=== PATIENT | male | born 1985 | race Caucasian/White ===

== ENCOUNTER 2016-07-03 16:45 | Emergency (ER) | payer OTHER ==
[2016-07-03] MEDS ORDERED: NALOXONE HCL 0.4 MG/ML VIAL ONE (16:58)
[2016-07-03 17:12] VITALS: TEMP 98; BMI 28.7
--- NOTE | 2016-07-03 17:20 | PDOC ---
History of Present Illness - History of Present Illness Initial Comments: 07/03/16 17:20 Patient is a 30 year old male with a PMHx of polysubstance abuse with multiple ED visits for Heroin overdose who was brought by EMS for heroin overdose. As per EMS, patients girlfriend was in the shower and when she came out she found him unresponsive in bed. She called EMS and started doing CPR. When paramedics arrived they gave 2mg of Narcan nasally, started a line and gave another 2mg IV. En route to the ED patient was given another 2mg IV with a total of 6mg of Narcan to get patient to an arousable state. Patient was lethargic when trying to question him and then 10 minutes later patient was awake and responsive. Patient stated he took two bags of heroin today, cocaine yesterday, and PCP last week. Patient states he felt his girlfriend doing complressions on his chest but he was unable to respond or breathe properly. He denies chest pain, palpitations, fever, chills He denies nausea, vomiting, diarrhea, abdominal pain He denies dysuria, hematuria, frequency PMHx: Polysubstance abuse PSHx: None MEDS: None Allergies: Penicillins, aripiprazole Social: Denies alcohol. (+) drug use of heroin, PCP, cocaine. (+) 12 cigarettes a day <Iris Castañeda - Last Filed: 07/03/16 19:38> <Giovanni Jones - Last Filed: 07/03/16 23:55> - General Chief Complaint: Overdose Stated Complaint: UNRESPONSIVE Time Seen by Provider: 07/03/16 17:05 Past History - Past Medical History Anemia: No Asthma: Yes Cancer: No Cardiac Disorders: No CVA: No COPD: No CHF: No DVT: No Dementia: No Diabetes: No Dialysis: No GI Disorders: No Disorders: No HTN: No Hypercholesterolemia: No HIV: No Kidney Stones: No Liver Disease: No Psychiatric Problems: Yes (feeling somewhat depressed, but not suicidal) Suicide Attempt (Hx): No Seizures: No Thyroid Disease: No Lung CA: No - Surgical History Abdominal Surgery: No Appendectomy: No Cardiac Surgery: No Cholecystectomy: No Gastric Stapling: No GI Surgery: No Lung Surgery: No Neurologic Surgery: No Orthopedic Surgery: No - Reproductive History Testicular Surgery: No - Immunization History Td Vaccination: Yes Immunization Up to Date: No - Psycho/Social/Smoking Cessation Hx Anxiety: No Suicidal Ideation: No Smoking Status: Yes Smoking History: Current every day smoker Have you smoked in the past 12 months: Yes Number of Cigarettes Smoked Daily: 20 Information on smoking cessation initiated: No 'Breaking Loose' booklet given: 06/12/16 Hx Alcohol Use: No Drug/Substance Use Hx: No Substance Use Type: Alcohol, Cocaine, Heroin Hx Substance Use Treatment: No <Iris Castañeda - Last Filed: 07/03/16 19:38> <Giovanni Jones - Last Filed: 07/03/16 23:55> - Past Medical History Allergies/Adverse Reactions: Allergies Allergy/AdvReac Type Severity Reaction Status Date / Time aripiprazole [From Abilify] Allergy Severe throat Verified 06/12/16 02:51 swelling amoxicillin trihydrate Allergy Verified 06/12/16 02:51 [From Augmentin] Penicillins Allergy Verified 06/12/16 02:51 potassium clavulanate Allergy Verified 06/12/16 02:51 [From Augmentin] quetiapine fumarate Allergy Verified 06/12/16 02:51 [From Seroquel] ziprasidone HCl [From Geodon] Allergy Verified 06/12/16 02:51 ziprasidone mesylate Allergy Verified 06/12/16 02:51 [From Geodon] Home Medications: Ambulatory Orders Naloxone HCl [Narcan -] 0.4 mg IJ ONCE #1 vial 07/03/16 Review of Systems - Review of Systems Constitutional: No: Chills, Diaphoresis, Fever HEENTM: No: Blurred Vision, Double Vision Respiratory: No: Cough, Shortness of Breath Cardiac (ROS): No: Chest Pain, Lightheadedness, Syncope ABD/GI: No: Nausea, Vomiting : No: Dysuria, Discharge, Frequency, Flank Pain Musculoskeletal: No: Back Pain, Joint Pain Integumentary: No: Bruising, Erythema Neurological: No: Headache, Numbness, Paresthesia, Seizure, Tingling, Tremors, Weakness, Unsteady Gait, Ataxia, Dizziness Endocrine: No: Intolerance to Cold, Intolerance to Heat Hematologic/Lymphatic: No: Anemia, Blood Clots <Iris Castañeda - Last Filed: 07/03/16 19:38> *Physical Exam - Vital Signs Last Vital Signs Temp Pulse Resp BP Pulse Ox 98.0 F 110 H 14 136/85 98 07/03/16 17:09 07/03/16 17:04 07/03/16 17:04 07/03/16 17:04 07/03/16 17:11 - Physical Exam General Appearance: Yes: Other (awake, alert, and in no respiratory distress ) HEENT: positive: EOMI, ALISON, Normal ENT Inspection, TMs Normal, Pharynx Normal, Other (constricted pupils ) Neck: positive: Trachea midline Respiratory/Chest: positive: Lungs Clear, Normal Breath Sounds Cardiovascular: positive: Regular Rhythm, S1, S2, Tachycardia. negative: Edema , JVD Gastrointestinal/Abdominal: positive: Normal Bowel Sounds, Soft. negative: Distended, Guarding, Rebound, Tenderness Musculoskeletal: positive: Normal Inspection Extremity: positive: Normal Inspection Integumentary: positive: Normal Color, Dry, Warm Neurologic: positive: senior quality assurance analyst II-XII NML intact, Fully Oriented, Alert, Normal Response, Motor Strength 5/5 <Iris Castañeda - Last Filed: 07/03/16 19:38> - Vital Signs Last Vital Signs Temp Pulse Resp BP Pulse Ox 98.0 F 120 H 18 121/76 98 07/03/16 17:09 07/03/16 17:58 07/03/16 17:58 07/03/16 17:58 07/03/16 17:58 <Giovanni Jones - Last Filed: 07/03/16 23:55> Heart Score/ECG Review - ECG Impressions Non-specific ST Elevation: No Ischemic Changes: No Tachycardia: Sinus (@113 BPM) <Iris Castañeda - Last Filed: 07/03/16 19:38> ED Treatment Course - LABORATORY CBC & Chemistry Diagram: 07/03/16 17:20 07/03/16 17:20 <Iris Castañeda - Last Filed: 07/03/16 19:38> - LABORATORY CBC & Chemistry Diagram: 07/03/16 17:20 07/03/16 17:20 - ADDITIONAL ORDERS Additional order review: Laboratory Results 07/03/16 07/03/16 22:31 17:20 Sodium 138 Potassium 4.3 Chloride 101 Carbon Dioxide 24 Anion Gap 13 BUN 15 D Creatinine 1.8 H D Creat Clearance w eGFR 44.83 Random Glucose 266 H D Calcium 8.7 Total Bilirubin 0.3 D AST 42 H D ALT 38 D Alkaline Phosphatase 102 D Total Protein 7.7 D Albumin 4.2 D Urine Color Yellow Urine Appearance Clear Urine pH 5.0 Ur Specific [place] 1.024 Urine Protein 1+ H Urine Glucose (UA) 3+ H Urine Ketones Negative Urine Blood Negative Urine Nitrite Negative Urine Bilirubin Negative Urine Urobilinogen Negative Ur Leukocyte Esterase Negative 07/03/16 17:20 RBC 5.32 MCV 87.7 MCHC 31.8 L RDW 13.8 MPV 9.4 Neutrophils % 57.8 Lymphocytes % 29.9 D Monocytes % 10.8 H Eosinophils % 1.1 Basophils % 0.4 - Medications Given in the ED: ED Medications Discontinued Medications Generic Name Dose Route Start Last Admin Trade Name Freq PRN Reason Stop Dose Admin Sodium Chloride 500 mls @ 500 mls/hr 07/03/16 18:44 07/03/16 18:50 Normal Saline - IV 07/03/16 19:43 500 mls/hr ASDIR STA Administration Sodium Chloride 500 mls @ 500 mls/hr 07/03/16 21:44 07/03/16 22:58 Normal Saline - IV 07/03/16 22:43 500 mls/hr ASDIR STA Administration <Giovanni Jones - Last Filed: 07/03/16 23:55> Medical Decision Making - Medical Decision Making 07/03/16 17:20 Patient is a 30 year old male with a PMHx of polysubstance abuse with multiple ED visits for Heroin overdose who was brought by EMS for heroin overdose. Patient was given a total of 6mg of Narcan en route to the ED before patient became responsive. Initially in the ED patient was lethargic and minimally responsive. Within 10 minutes patient was awake, alert, and responsive answering questions. ED Course and Treatment: -CBC -CMP -Drug screen -EKG -Chest X-ray 07/03/16 18:20 -Patient is now fully awake, alert, oriented and responsive without difficulty breathing 07/03/16 18:45 -Chest x-ray negative for acute pathology 07/03/16 18:51 -CBC wnl -CMP revealed creatinine of 1.8, baseline 1.0 -Will give fluids -Will endorse case to Dr. Jones <Iris Castañeda - Last Filed: 07/03/16 19:38> - Medical Decision Making 07/03/16 23:31 <Giovanni Jones - Last Filed: 07/03/16 23:55> *DC/Admit/Observation/Transfer <Iris Castañeda - Last Filed: 07/03/16 19:38> <Giovanni Jones - Last Filed: 07/03/16 23:55> Diagnosis at time of Disposition: Cocaine dependence, Opioid dependence Drug overdose Qualifiers: Encounter type: initial encounter Injury intent: accidental or unintentional Qualified Code(s): T50.901A - Poisoning by unspecified drugs, medicaments and biological substances, accidental (unintentional), initial encounter - Discharge Dispostion Disposition: HOME Condition at time of disposition: Stable - Referrals Referrals: Helen Silva MD [Primary Care Provider] - - Patient Instructions Printed Discharge Instructions: DI for Drug Abuse and Drug Addiction
[2016-07-03 17:33] LABS: BASOPHIL 0.4 % (0-2.0); EOSINOPHIL 1.1 % (0-4.5); MCH 27.9 pg (25.7-33.7); MCHC 31.8 g/dl (32.0-35.9); MEAN CELL VOLUME 87.7 fl (80-96); MEAN PLT VOLUME 9.4 fl (7.5-11.1); NEUTROPHILS 57.8 % (42.8-82.8); PLATELET COUNT 223 K/MM3 (134-434); RDW 13.8 % (11.9-15.9); WHITE BLOOD COUNT 7.2 K/mm3 (4.0-10.0)
[2016-07-03 17:59] VITALS: BP 121/76; PULSE 120
[2016-07-03 18:26] LABS: ALBUMIN 4.2 g/dl (3.4-5.0); CALCIUM 8.7 mg/dL (8.5-10.1); CREATININE 1.8 mg/dL (0.7-1.3)
[2016-07-03 18:28] LABS: BILIRUBIN,TOTAL 0.3 mg/dL (0.2-1.0); TOT PROT 7.7 g/dl (6.4-8.2)
[2016-07-03] MEDS ORDERED: SODIUM CHLORIDE 500 ML IV STA ×2 (18:44→21:44)
--- NOTE | 2016-07-03 18:44 | PDOC ---
Attending Attestation - Resident Resident Name: Iris Castañeda - ED Attending Attestation I have performed the following: I have examined & evaluated the patient, The case was reviewed & discussed with the resident, I agree w/resident's findings & plan, Exceptions are as noted - HPI HPI: 07/03/16 18:41 Patient is a 30-year-old male with history polysubstance abuse brought in by EMS after he was noted apneic and unresponsive after injecting 2 bags of heroin. Patient's girlfriend administered CPR prior to arrival of EMS. Patient had received 2 mg of Narcan intranasally and 4 mg of Narcan IV by EMS with resolution of apnea and the returned to normal mental status. - Physicial Exam PE: 07/03/16 18:42 Patient is awake and alert, follows commands, protecting his airway. Oxygen saturation is noted to be 94% on room air. End-tidal CO2 is noted to be 28. Lungs are noted to be clear; neurological exam reveals no focal deficits. - Medical Decision Making 07/03/16 18:43 30-year-old male presents by EMS after apnea and altered mental status after injecting IV heroin. Will observe, we'll administer additional doses of Narcan as needed for respiratory support. Will obtain chest x-ray, will hydrate. 07/03/16 21:32 Patient reassessed. Patient remains awake and alert, follows commands, tolerating water without pooling of secretions. Pulse oximeter remains 100% on 2 L via nasal cannula; entitle CO2 is noted to be 28. 07/03/16 23:31 pt is AOx3, resting comfortably. no respiratory issues are present currently. pt offered detox but refused. i discussed with him risk associated with continuous opiod use. he has expressed understanding but currently refuses drug rehab.
[2016-07-03 23:07] LABS: URINE APPEARANCE CLEAR; URINE BILIRUBIN NEGATIVE (NEGATIVE); URINE BLOOD NEGATIVE (NEGATIVE); URINE COLOR YELLOW; URINE GLUCOSE (UA) 3+ (NEGATIVE); URINE KETONE NEGATIVE (NEGATIVE); URINE LEUK ESTERASE NEGATIVE (NEGATIVE); URINE NITRITE NEGATIVE (NEGATIVE); URINE UROBILINOGEN NEGATIVE E.U./dl (0.2-1.0)
[2016-07-03 23:23] LABS: URINE PROTEIN 1+ (NEGATIVE)
[2016-07-04 00:32] LABS: URINE MARIJUANA THC POSITIVE ng/ml (CUTOFF=50)
--- NOTE | 2016-07-04 12:40 | EKG ---
Test Reason : Blood Pressure : / mmHG Vent. Rate : 113 BPM Atrial Rate : 113 BPM P-R Int : 142 ms QRS Dur : 088 ms QT Int : 326 ms P-R-T Axes : 047 045 030 degrees QTc Int : 447 ms SINUS TACHYCARDIA WHEN COMPARED WITH ECG OF 13-JUN-2016 06:49, NONSPECIFIC T WAVE ABNORMALITY NOW EVIDENT IN LATERAL LEADS Confirmed by JEFFREY MATSON MD ([id number]) on 07/04/2016 12:40:10 PM Referred By: Confirmed By:JEFFREY MATSON MD
== END 2016-07-03 23:45 | disposition home or self-care (01) ==
LOC: JER 16:45
PROC: 3E0337Z Introduction of Electrolytic and Water Balance Substance into Peripheral Vein, Percutaneous Approach (ICD-10-PCS; principal; 2016-07-03)
DX: T40.1X1A Poisoning by heroin, accidental (unintentional), initial encounter (principal); R41.82 Altered mental status, unspecified; Y92.032 Bedroom in apartment as the place of occurrence of the external cause; F11.20 Opioid dependence, uncomplicated; F14.20 Cocaine dependence, uncomplicated; F17.210 Nicotine dependence, cigarettes, uncomplicated
CPT/HCPCS: 36415; 71010-TC; 80053; 80307; 81003; 81015; 85025; 93005; 93010; 99285-25

== ENCOUNTER 2016-08-06 05:13 | Emergency (ER) | payer OTHER ==
--- NOTE | 2016-08-06 05:27 | PDOC ---
History of Present Illness - General History Source: EMS Exam Limitations: Clinical Condition - History of Present Illness Initial Comments: 08/06/16 05:29 The patient is a 30 year old male with significant past medical history of asthma, polysubstance abuse (heroin, cocaine), and multiple visits for heroin overdose who presents to the ED BIBA with cardiac arrest s/p drug overdose just prior to arrival. Patient was found down by friend at approximately 4:20. Questionable last known well was at 4:00 because friend at scene was also noted to be high. Unknown of what kind of drugs were used. Patients friend contacted 911 and EMS arrived at the scene 15 minutes prior to presentation. EMS administered 3 epi and 2 narcans. Upon arrival, patient was already intubated with a cardiac thumper placed and being bagged by BVM. Patient arrived to the ER at 5:08. A ultrasound at bedside was done at 5:10 that revealed no signs of cardiac activity. Time of was pronounced by me at 5:11. <Dayna Corley - Last Filed: 08/06/16 05:48> - General History Source: EMS Exam Limitations: Clinical Condition <Chad Ly - Last Filed: 08/06/16 06:16> - General Stated Complaint: CARDIAC ARREST Time Seen by Provider: 08/06/16 05:13 Past History <Dayna Corley - Last Filed: 08/06/16 05:48> - Past Medical History Anemia: No Asthma: Yes Cancer: No Cardiac Disorders: No CVA: No COPD: No CHF: No DVT: No Dementia: No Diabetes: No Dialysis: No GI Disorders: No Disorders: No HTN: No Hypercholesterolemia: No HIV: No Kidney Stones: No Liver Disease: No Psychiatric Problems: Yes (feeling somewhat depressed, but not suicidal) Suicide Attempt (Hx): No Seizures: No Thyroid Disease: No Lung CA: No - Surgical History Abdominal Surgery: No Appendectomy: No Cardiac Surgery: No Cholecystectomy: No Gastric Stapling: No GI Surgery: No Lung Surgery: No Neurologic Surgery: No Orthopedic Surgery: No - Reproductive History Testicular Surgery: No - Immunization History Td Vaccination: Yes Immunization Up to Date: No - Psycho/Social/Smoking Cessation Hx Anxiety: No Suicidal Ideation: No Smoking Status: Yes Smoking History: Current every day smoker Have you smoked in the past 12 months: Yes Number of Cigarettes Smoked Daily: 20 'Breaking Loose' booklet given: 06/12/16 Hx Alcohol Use: No Drug/Substance Use Hx: No Substance Use Type: Alcohol, Cocaine, Heroin Hx Substance Use Treatment: No <Chad Ly - Last Filed: 08/06/16 06:16> - Past Medical History Allergies/Adverse Reactions: Allergies Allergy/AdvReac Type Severity Reaction Status Date / Time aripiprazole [From Abilify] Allergy Severe throat Verified 08/06/16 05:37 swelling amoxicillin trihydrate Allergy Verified 08/06/16 05:37 [From Augmentin] Penicillins Allergy Verified 08/06/16 05:37 potassium clavulanate Allergy Verified 08/06/16 05:37 [From Augmentin] quetiapine fumarate Allergy Verified 08/06/16 05:37 [From Seroquel] ziprasidone HCl [From Geodon] Allergy Verified 08/06/16 05:37 ziprasidone mesylate Allergy Verified 08/06/16 05:37 [From Geodon] Home Medications: Ambulatory Orders Naloxone HCl [Narcan -] 0.4 mg IJ ONCE #1 vial 07/03/16 Review of Systems - Review of Systems Able to Perform ROS?: No Comments:: 08/06/16 05:37 Unable to obtain ROS due to clinical condition <Dayna Corley - Last Filed: 08/06/16 05:48> *Physical Exam - Physical Exam Comments: 08/06/16 05:36 GENERAL: Pt is unresponsive HEENT: Pupils fixed and dilated. No racoon or obrien signs. CARDIOVASCULAR: No spontaneous heart sounds. PULMONARY: ET tube placed. No spontaneous breath sounds. ABDOMEN: Soft, distended, obese. EXTREMITIES: No gross deformities. SKIN: Clammy NEUROLOGICAL: Pt is unresponsive <Dayna Corley - Last Filed: 08/06/16 05:48> Medical Decision Making - Medical Decision Making 08/06/16 05:39 Dr. Ly: The scribe's documentation has been prepared under my direction and personally reviewed by me in its entirery. I confirm that the note above accurately reflects all work, treatment, procedures, and medical decision making performed by me. Patient presented with no spontaneous BS, or HR or BP. Sonosite showed no cardiac movement. Pt pronounced by me at 5:11am. Spoke to [facility]. Care Manager Cna Nancy. accepted case #[id number]. 08/06/16 06:16 Nurse attempted to call next of kin in chart. No response <Chad Ly - Last Filed: 08/06/16 06:16> *DC/Admit/Observation/Transfer - Attestations Scribe Attestion: 08/06/16 05:32 Documentation prepared by Dayna Corley, acting as medical insurance coding specialist for Chad Ly MD <Dayna Corley - Last Filed: 08/06/16 05:48> - Discharge Dispostion Admit: No <Chad Ly - Last Filed: 08/06/16 06:16> Diagnosis at time of Disposition: Cardiac arrest Drug overdose Qualifiers: Encounter type: initial encounter
[2016-08-06 06:08] VITALS: BP 00/00; PULSE 0; BMI 31.6
--- NOTE | 2016-08-06 09:31 | PDOC ---
*Physical Exam - Vital Signs Last Vital Signs Temp Pulse Resp BP Pulse Ox 0 L 0 L 00/00 0 L 08/06/16 05:14 08/06/16 05:14 08/06/16 05:14 08/06/16 05:14 Medical Decision Making - Medical Decision Making 08/06/16 09:30 Father in ED, notified of son's . He spoke with CM and SW, patient to ME. All questions answered. Pt struggled with PSA for a long time. *DC/Admit/Observation/Transfer Diagnosis at time of Disposition: Cardiac arrest Drug overdose Qualifiers: Encounter type: initial encounter - Discharge Dispostion Disposition: - Referrals Referrals: Helen Silva MD [Primary Care Provider] - - Patient Instructions - Post Discharge Activity
== END 2016-08-06 06:51 | disposition expired ==
LOC: JER 05:13
PROC: 5A12012 Performance of Cardiac Output, Single, Manual (ICD-10-PCS; principal; 2016-08-06)
DX: I46.8 Cardiac arrest due to other underlying condition (principal); T65.891A Toxic effect of other specified substances, accidental (unintentional), initial encounter; Y92.038 Other place in apartment as the place of occurrence of the external cause
CPT/HCPCS: 92950; 99285-25